=== PATIENT | male | born 1970 | race Caucasian/White ===

== ENCOUNTER 2017-06-16 10:55 | Day surgery (SDC) | payer BC ==
[~2017-06-16] VITALS: Ht 172.7 cm; Wt 70.0 kg
[2017-06-16] VITALS (9 sets, daily range): BP systolic 123–136; BP diastolic 78–86; PULSE 20–51; RESP 14–25; Ht 172.7 cm; Wt 70.0 kg
--- NOTE | 2017-06-16 12:46 | HPN ---
Date/Time of Note Date/Time of Note DATE: 06/16/17 TIME: 12:46 Interval H&P Admission Note Pt. seen H&P reviewed: No system changes JUVENTINO CABALLERO MD Jun 16, 2017 12:46
--- NOTE | 2017-06-16 12:48 | PDOCDIS ---
Discharge Instructions DIAGNOSIS Discharge Diagnosis NEUROGENIC THORACIC OUTLET SYNDROME CONDITION Patient Condition: Good HOME CARE INSTRUCTIONS: Diet Instructions: Regular ACTIVITY: Activity Restrictions: No Restrictions Slowly Increase Activity Avoid heavy lifting Do not Drive Do not operate Machinery Do not operate Power Tool Bathing Restrictions: Shower FOLLOW UP/APPOINTMENTS Follow-up Plan TWO WEEKS WITH JUVENTINO ARANDA MD Jun 16, 2017 12:48
--- NOTE | 2017-06-16 12:50 | OPR ---
Date/Time of Note Date/Time of Note DATE: 06/16/17 TIME: 12:48 Operative Report Preoperative Diagnosis NEUROGENIC THORACIC OUTLET SYNDROME Postoperative Diagnosis NEUROGENIC THORACIC OUTLET SYNDROME Operation/Procedure Performed INTRAMUSCULAR ANTERIOR SCALENE MUSCLE BLOCK Surgeon: JUVENTINO CABALLERO MD Anesthesia: other (LOCAL) Estimated Blood Loss: minimal Complications: None JUVENTINO CABALLERO MD Jun 16, 2017 12:50
[2017-06-16] MEDS ORDERED: MIDAZOLAM 1 MG/ML 2 ML INJ ONE (12:51)
[2017-06-16] MEDS ORDERED: BUPIVACAINE 0.25% (MPF) 30 ML INJ ONE (12:52)
[2017-06-16] MEDS ORDERED: ONDANSETRON 4 MG INJ ONE (12:52)
[2017-06-16] MEDS ORDERED: FENTAnyl 50 MCG/ML VIAL ONE (12:52)
[2017-06-16] MEDS ORDERED: KETOROLAC 30 MG INJ ONE (12:52)
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
== END 2017-06-16 15:31 | disposition home or self-care (01) ==
LOC: SDS 10:55
PROVIDERS: ATTEND Student in an Organized Health Care Education/Training Program
DX: G54.0 Brachial plexus disorders (principal)
CPT/HCPCS: 64415; C1725; J2250; J2405; J1885; J3010